=== PATIENT | female | born 1975 | race Caucasian/White ===

== ENCOUNTER 2021-11-04 15:27 | Emergency (ER) | payer BC, SELFPAY ==
[2021-11-04 15:43] VITALS: BP 130/83; PULSE 84; RESP 18; TEMP 36.4; O2SAT 99
--- NOTE | 2021-11-04 15:43 | ED.EAR ---
HPI - Ear Problem General Chief complaint: Ear Stated complaint: lt ear pain Time Seen by Provider: 11/04/21 15:43 Source: patient Mode of arrival: ambulatory Limitations: no limitations History of Present Illness HPI Narrative: 46-year-old female presents with complaint of left ear pain for approximately 1 week. Today noticed left earlobe is swollen, red and tender. Also noticed decreased hearing from left ear. Afebrile. All systems reviewed and negative except as noted above. Related Data Allergies Allergy/AdvReac Type Severity Reaction Status Date / Time No Known Allergies Allergy Verified 11/04/21 15:51 Review of Systems Review of Systems: CONSTITUTIONAL: Denies fever, chills, or sweats. EYES: Denies visual changes, redness, or discharge. ENT: Denies rhinorrhea, congestion, sore throat. Reports left ear pain. CARDIOVASCULAR: Denies chest pain, palpitations, or edema. RESPIRATORY: Denies cough or dyspnea. GASTROINTESTINAL: Denies abdominal pain, nausea, vomiting, or diarrhea. GENITOURINARY: Denies dysuria or hematuria. SKIN: Denies rash or itching. MUSCULOSKELETAL: Denies back pain, joint pain, or myalgia. NEUROLOGIC: Denies headache, numbness, or weakness. PSYCHIATRIC: Denies anxiety or depression. All other systems reviewed are negative, except as documented in HPI. PMFSH Comments At time of signature, agree with nursing past medical, surgical, social and family history. There is no relevant family history pertinent to the presenting complaint. Exam Narrative: GENERAL: This is a well-nourished, well-developed patient, in no apparent distress. HEAD: normocephalic, atraumatic. EYES: PERRL. Sclera clear/white. Vision is grossly intact. EARS: TMs normal without perforation. Swelling erythema and white drainage to left ear canal. Erythema, swelling and tenderness to entire left earlobe. NOSE: External nose normal NECK: Neck supple, non-tender without lymphadenopathy, masses or thyromegaly. CARDIOVASCULAR: Regular rate and rhythm without murmurs, gallops, or rubs. RESPIRATORY: Clear to auscultation. Breath sounds equal bilaterally. No wheezes, rales, or rhonchi. SKIN: warm, Dry, intact with no suspicious lesions or rash, good texture and turgor. NEURO: awake, alert, and oriented to person, place and time. There were no obvious focal neurologic abnormalities. EXTREMITIES: Normal range of motion to all extremities. Course Course Level of Care: Express Care Visit Vital Signs Vital signs: Vital Signs Temperature 36.4 C L 11/04/21 15:43 Pulse Rate 84 11/04/21 15:43 Respiratory Rate 18 11/04/21 15:43 Blood Pressure 130/83 11/04/21 15:43 Pulse Oximetry 99 11/04/21 15:43 Temperature 36.4 C L 11/04/21 15:43 Pulse Rate 84 11/04/21 15:43 Respiratory Rate 18 11/04/21 15:43 Blood Pressure 130/83 11/04/21 15:43 Pulse Oximetry 99 11/04/21 15:43 Reviewed Medical Decision Making MDM Narrative Medical decision making narrative: Patient is aware of diagnosis, understands and agrees to treatment plan. Anticipatory guidance given. Patient agrees to follow-up as directed and is aware of reasons to seek care at the emergency department. Portions of this record may have been created with voice recognition software Vital Signs Vital Signs: Vital Signs Temperature 36.4 C L 11/04/21 15:43 Pulse Rate 84 11/04/21 15:43 Respiratory Rate 18 11/04/21 15:43 Blood Pressure 130/83 11/04/21 15:43 Pulse Oximetry 99 11/04/21 15:43 Temperature 36.4 C L 11/04/21 15:43 Pulse Rate 84 11/04/21 15:43 Respiratory Rate 18 11/04/21 15:43 Blood Pressure 130/83 11/04/21 15:43 Pulse Oximetry 99 11/04/21 15:43 Discharge Plan Discharge Clinical Impression: Cellulitis of left external ear, Acute left otitis media Patient Disposition: Home, Self-Care Condition: Stable Instructions: Antibiotic Form, Swimmer's Ear (ED) Additional Instructions: Use antibiotics
== END 2021-11-04 16:00 | disposition home or self-care (01) ==
PROVIDERS: Emergency Provider Nurse Practitioner Family
DX: H60.12 Cellulitis of left external ear (principal); H66.92 Otitis media, unspecified, left ear
CPT/HCPCS: 99203; G0463

== ENCOUNTER 2022-07-25 11:42 | Outpatient (CLI) | payer BC, SELFPAY ==
--- NOTE | ~2022-07-25 | MMUS_ITS ---
EXAMINATION: MM diagnostic wandy BI w adeline, US breast RT complete HISTORY: Right breast pain TECHNIQUE: Additional 3-D tomosynthesis images of the breasts were performed and synthetic 2-D images were generated. CAD analysis was submitted and interpreted. High resolution complete right breast ul trasound was performed. COMPARISON: Comparison to multiple prior studies sequentially, with oldest reviewed study dated 11/2018. BREAST PARENCHYMAL COMPOSITION: Breast composed of scattered areas of fibroglandular density FINDINGS: MAMMOGRAPHIC FINDINGS: There are no suspicious masses, calcifications or architectural distortion in either breast to sugges t malignancy. ULTRASOUND: Complete US of all 4 quadrants of the right breast and retroareolar region was reviewed. Normal heter ogeneous echotexture without focal solid or cystic mass. IMPRESSION: 1. No evidence for malignancy in either breast. 2. Routine yearly screening mammogram and regular clinical breast examination are recommended. BI-RADS CATEGORY 1 - NEGATIVE Reviewed, dictated and finalized at location A. [employer] ASSURANCE/R[employer]D LAB TECHNICIAN IMPRESSION: 1. No evidence for malignancy in either breast. 2. Routine yearly screening mammogram and regular clinical breast examination a re recommended. BI-RADS CATEGORY 1 - NEGATIVE
== END 2022-07-25 11:43 | disposition home or self-care (01) ==
PROVIDERS: Visit Provider Hospitalist
DX: N64.4 Mastodynia (principal)
CPT/HCPCS: 76641; 77062; 77066; G0279

== ENCOUNTER 2023-09-07 15:27 | Emergency (ER) | payer BC, SELFPAY ==
[2023-09-07 15:39] VITALS: BP 136/77; PULSE 95; RESP 18; TEMP 37; O2SAT 100
--- NOTE | 2023-09-07 15:54 | ED.FEMALEGU ---
HPI - Female Genitourinary General Chief complaint: Urogenital-Female Stated complaint: UTI Symptoms Time Seen by Provider: 09/07/23 16:05 Source: patient and RN notes reviewed Mode of arrival: ambulatory Limitations: no limitations History of Present Illness HPI Narrative: 48-year-old female presents with concern with low back pain. She reports she ?threw out my back? last week and she has been seeing a chiropractor. She reports minimal improvement with the chiropractor. She reports pain is worse with bending, twisting, sitting, standing. She reports this week she has had some increased urine frequency. She denies dysuria, abdominal pain, nausea, vomiting, fever, chills, body aches, sweats. She denies weakness in any extremity. She denies loss of bowel or bladder function, perianal anesthesia. She reports she has been having typical vaginal discharge MD elicited complaint: UTI Related Data Allergies Allergy/AdvReac Type Severity Reaction Status Date / Time No Known Allergies Allergy Verified 09/07/23 15:43 Review of Systems Review of Systems: CONSTITUTIONAL: Denies malaise, chills, sweats, or fever. CARDIOVASCULAR: Denies chest pain, palpitations, or edema. RESPIRATORY: Denies cough or dyspnea. GASTROINTESTINAL: Denies abdominal pain, nausea, vomiting, diarrhea GENITOURINARY: Denies dysuria, urgency, suprapubic pressure. Denies flank pain or hematuria. Reports urine frequency SKIN: Denies rash or itching. MUSCULOSKELETAL: Reports left low back pain. Denies myalgia. All systems reviewed & are unremarkable except as noted in HPI and below PMFSH Comments At time of signature, agree with nursing past medical, surgical, social and family history. There is no relevant family history pertinent to the presenting complaint Exam Narrative: GENERAL: Well-appearing, well-nourished, and in no acute distress. HEAD: Normocephalic, atraumatic. EYES: PERRLA and EOMI. NECK: Supple. No lymphadenopathy. CHEST: Clear to auscultation. No respiratory distress. HEART: Regular rate and rhythm. Distal pulses palpable and equal, cap refill <3 seconds ABDOMEN: Soft, nontender, nondistended, normal active bowel sounds, no palpable or pulsatile masses. No CVA tenderness MUSCULOSKELETAL: Normal range of motion and strength in all extremities; 5/5 strength with hip flexion and extension, dorsiflexion and extension, knee flexion and extension, plantar flexion and extension. Normal sensation in dermatomal distributions with sensitivity to light touch and pain. No midline back tenderness to palpation. No paraspinal tenderness. Transfers from lying to sitting to standing. SKIN: Warm, dry, no rash. No ecchymosis, erythema, open wounds to back. NEURO: No focal deficits. Alert and oriented x3. Reflexes intact. Normal gait. PSYCH: Normal mood and affect Course Course Emergency Course: Patient is aware of diagnosis, understands and agrees to treatment plan. Anticipatory guidance given. Patient agrees to follow-up as directed and is aware of reasons to seek care at the emergency department. Portions of this record may have been created with voice recognition software Level of Care: Express Care Visit Vital Signs Vital signs: Vital Signs Temperature 98.6 F 09/07/23 15:39 Pulse Rate 95 09/07/23 15:39 Respiratory Rate 18 09/07/23 15:39 Blood Pressure 136/77 09/07/23 15:39 Pulse Oximetry 100 09/07/23 15:39 Oxygen Delivery Room Air 09/07/23 15:39 Temperature 98.6 F 09/07/23 15:39 Pulse Rate 95 09/07/23 15:39 Respiratory Rate 18 09/07/23 15:39 Blood Pressure 136/77 09/07/23 15:39 Pulse Oximetry 100 09/07/23 15:39 Oxygen Delivery Room Air 09/07/23 15:39 Reviewed. MDM - Female Genitourinary MDM Narrative Medical decision making narrative: Exam findings and UA show no acute concerns or changes; patient is non-toxic appearing and is in no distress. Patient is appropriate for outpatient treat
== END 2023-09-07 16:17 | disposition home or self-care (01) ==
PROVIDERS: Emergency Provider Nurse Practitioner; PCP Hospitalist
DX: M54.50 Low back pain, unspecified (principal)
CPT/HCPCS: 81003; 99213; G0463

== ENCOUNTER 2025-03-04 15:31 | Emergency (ER) | payer BC, SELFPAY ==
--- NOTE | 2025-03-04 15:36 | ED.GENADULT ---
HPI - General Adult General Chief complaint: Urogenital-Female Stated complaint: possible bladder infection Source: patient Mode of arrival: ambulatory Limitations: no limitations History of Present Illness HPI narrative: Pt is a 49-year-old female presenting with complaint of urinary symptoms. Symptoms reported include suprapubic pressure, urinary frequency, hematuria. Symptoms were noted this morning. Treatment initiated prior to arrival include is Tylenol. No concern for STI or . no Additional complaints. Related Data Allergies Allergy/AdvReac Type Severity Reaction Status Date / Time No Known Allergies Allergy Verified 03/04/25 15:32 Review of Systems Review of Systems: CONSTITUTIONAL: Denies body aches, fever, chills, or sweats. EYES: Denies visual changes, redness, or discharge. ENT: Denies rhinorrhea, congestion, sore throat, or otalgia. CARDIOVASCULAR: Denies chest pain, palpitations, or edema. RESPIRATORY: Denies cough or dyspnea. GASTROINTESTINAL: Denies abdominal pain, nausea, vomiting, or diarrhea. GENITOURINARY: reports suprapubic pressure, frequency, hematuria,denies dysuria SKIN: Denies rash, itching, or wounds. MUSCULOSKELETAL: Denies back pain, joint pain, or myalgia. NEUROLOGIC: Denies headache, numbness, tingling, or weakness. PSYCH: Denies depression or anxiety. All systems reviewed & are unremarkable except as noted in HPI and below ( HPI) Exam Narrative: GENERAL: Well-appearing, well-nourished, and in no acute distress. HEAD: Normocephalic, atraumatic. EYES: EOMI. No redness or drainage. Conjunctivae normal. NECK: Normal AROM. Supple. CHEST: No respiratory distress. HEART: Regular rate ABDOMEN: Soft, nontender, nondistended, normal active bowel sounds. no CVAT MUSCULOSKELETAL: No bony tenderness. EXTREMITIES: Normal range of motion. No edema. SKIN: Warm, dry, no rash. Capillary refill normal. Normal skin turgor. NEURO: No focal deficits. Alert and oriented x3. Gait steady. PSYCH: Normal affect. No signs of depression or anxiety. Course Course Level of Care: Express Care Visit Vital Signs Vital signs: Vital Signs Temperature 97.8 F 03/04/25 15:39 Pulse Rate 76 03/04/25 15:39 Respiratory Rate 18 03/04/25 15:39 Blood Pressure 136/85 03/04/25 15:39 Pulse Oximetry 99 03/04/25 15:39 Oxygen Delivery Room Air 03/04/25 15:39 Temperature 97.8 F 03/04/25 15:39 Pulse Rate 76 03/04/25 15:39 Respiratory Rate 18 03/04/25 15:39 Blood Pressure 136/85 03/04/25 15:39 Pulse Oximetry 99 03/04/25 15:39 Oxygen Delivery Room Air 03/04/25 15:39 Medical Decision Making Vital Signs Vital Signs: Vital Signs Temperature 97.8 F 03/04/25 15:39 Pulse Rate 76 03/04/25 15:39 Respiratory Rate 18 03/04/25 15:39 Blood Pressure 136/85 03/04/25 15:39 Pulse Oximetry 99 03/04/25 15:39 Oxygen Delivery Room Air 03/04/25 15:39 Temperature 97.8 F 03/04/25 15:39 Pulse Rate 76 03/04/25 15:39 Respiratory Rate 18 03/04/25 15:39 Blood Pressure 136/85 03/04/25 15:39 Pulse Oximetry 99 03/04/25 15:39 Oxygen Delivery Room Air 03/04/25 15:39 Lab Data Lab results reviewed: Yes I reviewed the patient's lab results. Labs: Lab Results 03/04/25 Range/Units 15:44 POC Urine Color Yellow POC Urine Clarity Clear POC Urine pH 6.5 POC Ur Specif Mccool 1.015 POC Urine Protein Negative (Negative) POC Ur Glucose (UA) Negative (Negative) POC Urine Ketones Negative (Negative) POC Urine Blood Trace (Negative) POC Urine Nitrite Negative (Negative) POC Urine Bilirubin Negative (Negative) POC Urine Urobilinogen 0.2 POC U Leukocyte Esteras Trace (Negative) Discharge Plan Discharge Clinical Impression: Dysuria Patient Disposition: Home Condition: Stable Instructions: Antibiotic Form Additional Instructions: Go straight to ER should your symptoms become worse or should any new symptoms develop Patient Language: [place] Prescriptions: New nitrofurantoin monohyd/m-cryst [Macrobid] 100 mg capsule 100 mg PO Q12H 5 Days Qty: 10 0RF Rx Instructions: must administer with a meal/food Follow-up/Referrals: Naif,Benita Mccain MD [Primary Care Provider, Unknown] - 03/05/25 Time of Disposition: 15:46
[2025-03-04 15:39] VITALS: BP 136/85; PULSE 76; RESP 18; TEMP 36.6; O2SAT 99
[2025-03-04 15:47] LABS: EDUAAPPEAR Clear; EDUABILI Negative (Negative); EDUABLOOD Trace (Negative); EDUACOLOR1 Yellow; EDUAGLUCOSE Negative (Negative); EDUAKETONE Negative (Negative); EDUALEUKO Trace (Negative); EDUANITRATE Negative (Negative); EDUAPH 6.5; EDUAPROTEIN Negative (Negative); EDUASPGRAVITY 1.015; EDUAUROBILI 0.2
--- OUTSIDE RECORDS SUMMARY | 2025-03-04 15:51 | XMS_ITS | Encounter Summary ---
Author Organization [facility] Address [address] [place] [id number] Care Team Providers Care Hospice Case Manager Name Role Phone Aggie Stinson DIRECTOR CORRECTIONAL AGENCY Primary Care Provider [phone] Encounter Details Date Type Department Care Team (Latest Contact Info) Description 04/30/2018 Abstract [facility] Sy Rivera MD Social History Tobacco Use Types Packs/Day Years Used Date Smoking Tobacco: Never Assessed AUDIT-C Answer Date Recorded Frequency of Alcohol Consumption 2-4 times a sun05/02/2018 Average Number of Drinks 1 or 2 018 Frequency of Binge Drinking Not on file 01/2018 Comments Unknown Sex and Gender Information Value Date Recorded Sex Assigned at Not on file Legal Sex Female 7:42 PM CDT Gender Identity Not on file Sexual Orientation Not on file documented as of this encounter Functional Status documented as of this encounter Plan of Treatment Not on file documented as of this encounter Visit Diagnoses Not on filedocumented in this encounter Care Teams Hospice Case Manager Relationship Specialty Start Date End Date Aggie Stinson NP [address] [place] [address] PCP - General NURSE PRACTITIONER 04/25/18 04/16/24 documented as of this encounter
--- OUTSIDE RECORDS SUMMARY | 2025-03-04 15:51 | XMS_ITS | Clinical Summary ---
Author Organization [facility] Address [address] [place] [id number] Care Team Providers Care Director Acute Name Role Phone Unavailable Primary Care Provider Unavailabl e Allergies No known active allergies Medications esomeprazole 20 MG capsule Take 20 mg by mouth daily. Active multivitamin tablet Take 1 tablet by mouth daily. Active Active Problems Problem Noted Date Diagnosed Date Heartburn 06/14/2015 GERD (gastroesophageal reflux disease) 4 Immunizations Immunization Administration Dates Next Due Tdap (Adacel) 06/25/2019(Deferred: Patient/fam barbara declined) Tdap (Generic) 03/11/2016 Family History Medical History Relation Comments Brain cancer Father Cancer Father Diabetes Maternal Grandmother Diabetes Mother Relation Status Comments Father Maternal Grandmother Mother Alive Social History Tobacco Use Types Packs/Day Years Used Date Smoking Tobacco: Never Smokeless Tobacco: Never Alcohol Use Standard Drinks/Week Comments Yes 1.7 (1 standard drink = 0.6 oz p ure alcohol) Once per week AUDIT-C Answer Date Recorded Frequency of Alcohol Consumption 2-4 times a sun05/02/2018 Average Number of Drinks 1 or 2 018 Frequency of Binge Drinking Not on file 01/2018 Comments No Sex and Gender Information Value Date Recorded Sex Assigned at Not on file Legal Sex Female 7:42 PM CDT Gender Identity Not on file Sexual Orientation Not on file 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 Not on file Not on file Not on file Last Filed Vital Signs Vital Sign Reading Time Taken Comments Blood Pressure 122/82 12/23/2019 1:33 PM CDT Pulse 87 12/23/2019 1:33 PM CDT Temperature 36.7 C (98.1 F) 12/23/2019 1:33 PM CDT Respiratory Rate 20 12/23/2019 1:33 PM CDT Oxygen Saturation 99% 12/23/2019 1:33 PM CDT Inhaled Oxygen Concentration - - Weight 81.6 kg (180 lb) 12/23/2019 1:33 PM CDT Height 162.6 cm (5' 4) 12/23/2019 1:33 PM CDT Body Mass Index 30.9 12/23/2019 1:33 PM CDT Plan of Treatment Health Maintenance Due Date Last Done Comments Cervical Cancer Screening Pa p Smear (Age 30 to 64) Every 3 Years 1976 Colorectal Cancer Screening Colonoscopy (10 Years) 1976 Annual Physical 1979 Hepatitis C 1994 Hepatitis B Vaccines (1 of 3 - 19+ 3-dose series) 1995 Cervical Cancer Screening Pa p with HPV Testing (Age 30 to 64) Every 5 Years 2006 [facility]ical Cancer Screening [facility] HPV 2006 Mammogram Screening 2016 COVID-19 Vaccine (3 - 2024-2 6 season) 2025 10/24/2020, 10/10/2020 DTaP, Tdap and Td Vaccines ( 3 - Td or Tdap) 06/25/2029 06/25/2019, 03/11/2016 Meningococcal B Vaccine Aged Out No l onger eligible based on patient's age to complete this topic Meningococcal Vaccine Aged Out No jair rodríguez eligible based on patient's age to complete this topic Pneumococcal Vaccine: Pediatrics (0 to 5 Years) and At-Risk Patients (6 to 49 Years) Aged Out No longer eligible b ased on patient's age to complete this topic RSV Immunizations Under 20 Months Aged Out No longer eligible b ased on patient's age to complete this topic Insurance [employer]
--- OUTSIDE RECORDS SUMMARY | 2025-03-04 15:51 | XMS_ITS | Clinical Summary ---
Author Organization [facility] at the Medical Office Building Address [address] [place] [address] Care Team Providers Care Assembler Knife Name Role Phone Benita Disla MD Primary Care Pro vider Allergies No known active allergies Medications multivitamin tablet Take 1 tablet by mouth daily Active esomeprazole DR (NexIUM) 20 mg capsule Take 1 capsule (20 mg total) by mouth daily Active predniSONE (DELTASONE) 20 mg tablet Take 2 tablets (40 mg) by mouth daily 09/07/2023 Active cyclobenzaprine (FLEXERIL) 10 mg tablet Take 1 tablet (10 mg total) by mouth 3 (three) times a day as needed 09/07/2023 Active meloxicam (MOBIC) 15 mg tabletIndicatio ns:Acute left-sided low back pain without sciatica Take 1 tablet (15 mg total) by mouth daily for 15 days 15 tablet 09/17/2023 Active Active Problems Problem Noted Date Diagnosed Date Pre-diabetes 04/15/2024 Assessment & Plan (04/15/2024 9:40 AM CDT): Lab Results Component Value Date HGBA1C 6.0 (H) 11/09/2020 Due for recheck, orders placed to check before next appt Acute left-sided low back pain without sciatica 09/17/2023 Assessment & Plan (09/17/2023 1:02 PM CDT): Acute Ordered x-rays of lumbar spine Started on meloxicam 10 mg daily Advised not to take Advil, Motrin, ibuprofen, Aleve, naproxen, or aspirin while taking meloxicam Informed can also use lidocaine patches Instructed if she changes her mind and would like physical therapy, to notify office If symptoms do not resolve with treatment, recommended follow-up with PCP Instructed to go to ER if loss of bowel or bladder control, saddle anesthesia, back pain worsens, develops pain in legs, or numbness or tingling in legs Encounter for physical examination related to em ployment 12/12/2022 Assessment & Plan (12/12/2022 8:28 AM CDT): No abnormal findings on PE to preclude employment. Tdap up-to-date. No MMR records available for review. Paperwork completed. Well woman exam with routine gynecological exam 11/09/2020 Assessment & Plan (11/09/2020 4:42 PM CDT): Never smoker PAP: today Mammo due in January Sexual transmitted infection testing: declines BP within normal limits Body mass index is 32.1 kg/m . Discussed diet and exercise Discussed skin cancer prevention and screening Check labs Vaccinations UTD Class 1 obesity due to exces s calories without serious comorbidity with body mass index (BMI) of 31.0 to 31.9 in adult 01/21/2020 Assessment & Plan (09/17/2023 1:03 PM CDT): Chronic, improved Encouraged to: Make healthy food choices, limiting intake of concentrated sweets, cholesterol, and saturated fat Monitor daily caloric intake and portion sizes Exercise most days of the week when able for a goal of at least 150 minutes of exercise per week Assessment & Plan (01/21/2020 10:45 AM CDT): BMI Follow-up includes: exercise counseling. GERD (gastroesophageal reflux disease) 4 Assessment & Plan (01/21/2020 10:39 AM CDT): Stable on omeprazole Immunizations Immunization Administration Dates Next Due Influenza, Unspecified 04/15/2024(Deferr ed: Patient Refused),07/06/2022(Deferred: Patient Refused),03/25/2022(Deferred: Patient Refused) Pfizer SARS-CoV-2 Monovalent Vaccination (12+ Yrs) PURPLE 10/24/2020,10/10/2020 Tdap 06/25/2019,03/11/2016 Surgical History Surgery Date Site/Laterality Comments KNEE SURGERY Medical History Medical History Date Comments GERD (gastroesophageal reflux disease) Family History Medical History Relation Name Comments Brain cancer Father Diabetes Mother Relation Name Status Comments Brother Alive Father Mother Alive Sister Alive Social History Tobacco Use Types Packs/Day Years Used Date Smoking Tobacco: Never Smokeless Tobacco: Never Alcohol Use Standard Drinks/Week Comments Not Currently 0 (1 standard drink = 0.6 oz pur e alcohol) PHQ-2 Answer Date Recorded PHQ-2 Total Score (If total score is 3 or more points, staff should administer the PHQ-9) 0 09/17/2023 Personal Safety Answer Date Recorded Getting School Help Needed Not on file 06/20 Comments No Sex and Gender Information Value Date Recorded Sex Assigned at Not on file 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 Gender Identity Not on file Sexual Orientation Not on file Obstetrics History Para Term AB IAB SAB Ectopic Multiple Livin g Live Births 2 2 2 Date Outcome GA Total Labor Labor/2nd/3rd Weight Sex Type Anes PTL Sanjuana A1 A5 Name Clin Term Term Last Filed Vital Signs Vital Sign Reading Time Taken Comments Blood Pressure 124/76 04/15/2024 8:45 AM CDT Pulse 81 04/15/2024 8:45 AM CDT Temperature 36.7 C (98 F) 04/15/2024 8:45 AM CDT Respiratory Rate 18 04/15/2024 8:45 AM CDT Oxygen Saturation 99% 04/15/2024 8:45 AM CDT Inhaled Oxygen Concentration - - Weight 81.8 kg (180 lb 6.4 oz) 04/15/2024 8:45 A M CDT Height 162.6 cm (5' 4) 04/15/2024 8:45 AM CDT Body Mass Index 30.97 04/15/2024 8:45 AM CDT Plan of Treatment Health Maintenance Due Date Last Done Comments Colon Cancer Screening-Colonoscopy 1975 Hepatitis C Screening 1975 Hepatitis B Screening 1994 Regular Well Visit/Exam 18-64 11/09/2021 11/09/2020 Breast Cancer Screening-Mammogram 04/09/2022 04/09/2021, 12/31/2019, 07/31/2018, Additional history exists Covid-19 Vaccine ( season) 2024 07/05/2021, 10/24/2020, 10/10/2020 Depression Screening 09/16/2024 09/17/2023, 01/21/2020, 01/21/2020 Influenza Vaccine (#1) 2025 Cervical Cancer Screening 11/09/2025 11/09/2020 DTaP/Tdap/Td Vaccine (3 - Td or Tdap) 06/25/2029 06/25/2019, 03/11/2016 Pneumococcal vaccine <65 Aged Out No longer eligible based on patient's age to complete this topic Procedures Procedure Name Priority Date/Time Associated Diagnosis Comments SCREENING MAMMOGRAM BILATERAL W DAV Schedule Routine, Read Routine (OP Routine) 04/09/2021 10:16 AM CDT Encounter for screening mammogram for malignant neoplasm of breast THINPREP PAP WITH HPV Routine 11/09/2020 12:01 AM CDT from Last 3 Months or Most Recently Relevant to Health Maintenance Results * Screening Mammogram Bilateral W Dav (04/09/2021 10:16 AM CDT) Anatomical Region Laterality Modality Breast Bilateral Mammography Impressions 04/11/2021 8:53 AM CDT BI-RADS ATLAS category (overall): 1 Negative There is no mammographic evidence of malignancy. A 1 year screening mammogram is recommended. The patient has been or will be contacted. We recommend annual screening mammography for women at average risk of breast cancer beginning at age 40, based on guidelines of the [employer] (ACR Practice Parameter for the Performance of Screening and Diagnostic Mammography) and [place] [employer]. For women with and elevated risk of breast cancer, please refer to the ACR Practice Parameter for specific screening recommendations. The patient will be entered into a reminder system with a target due date of 1 year for her next screening exam. Narrative 04/11/2021 8:53 AM CDT Screening Mammogram Bilateral W Dav: 04/09/21 The study was acquired using full field digital technology and interpreted from soft copy. 2D digital mammographic views, as well as 3D digital tomosynthesis were performed in the CC and MLO projections. CLINICAL: Encounter for screening mammogram for malignant neoplasm of breast No relevant medical history has been documented for this patient. No known family history of breast cancer. COMPARISONS: 12/31/2019 Screening Mammogram Bilateral W Dav 07/31/2018 Screening Mammogram Bilateral W Dav BREAST TISSUE: The breasts have scattered areas of fibroglandular density. FINDINGS: No suspicious masses, suspicious calcifications, or other suspicious findings are seen within either breast. There has been no suspicious change. Procedure Note Deepak Mitchell MD - 04/11/2021 Screening Mammogram Bilateral W Dav: 04/09/21 The study was acquired using full field digital technology and interpretedfrom soft copy. 2D digital mammographic views, as well as 3D digitaltomosynthesis were performed in the CC and MLO projections. CLINICAL: Encounter for screening mammogram for malignant neoplasm ofbreast No relevant medical history has been documented for this patient.No known family history of breast cancer. COMPARISONS: 12/31/2019 Screening Mammogram Bilateral W Dav 07/31/2018 Screening Mammogram Bilateral W Dav BREAST TISSUE: The breasts have scattered areas of fibroglandular density. FINDINGS: No suspicious masses, suspicious calcifications, or othersuspicious findings are seen within either breast. There has been nosuspicious change. IMPRESSION: BI-RADS ATLAS category (overall): 1 Negative There is no mammographic evidence of malignancy. A 1 year screeningmammogram is recommended. The patient has been or will be contacted. We recommend annual screening mammography for women at average risk ofbreast cancer beginning at age 40, based on guidelines of the [employer] (ACR Practice Parameter for the Performance ofScreening and Diagnostic Mammography) and [place] [employer]. For women with and elevated risk ofbreast cancer, please refer to the ACR Practice Parameter for specificscreening recommendations. The patient will be entered into a reminder system with a target due dateof 1 year for her next screening exam. us Benita Disla MD IMG MAMMO PROCEDU RES Final Result * (ABNORMAL) ThinPrep Pap with HPV (11/09/2020 12:01 AM CDT) Pap test 11/09/2020 12:0 1 AM CDT 11/12/2020 10:38 AM CDT Narrative 11/18/2020 3:18 PM CDT [facility] Department of Pathology [address] [place], [place] [id number] Final Report with Addendum Patient Name: MAE JOEL Address: [address] [place] [address] Gender: F : 1975 (Age: 45) Service: Laboratory Location: Lab Hospital #: [id number] Patient Type: Ref Lab Taken: 11/09/2020 Received: 11/12/2020 Accessioned:: 11/15/2020 Reported: 11/18/2020 Physician(s): Benita Disla M.D. [facility] Diagnosis: Source of Specimen: Screening ThinPrep Imaged Pap w/Reflex HPV Specimen Adequacy: - Satisfactory for evaluation; endocervical/transformation zone component present General Category: - Epithelial cell abnormality Interpretation/Results: - Atypical squamous cells of undetermined significance MELISSA Valdes(ASCP) Sarah Marques M.D. Report Electronically Reviewed and Signed Out By Sarah Marques M.D. 11/18/2020 15:18:44 Addenda: HPV Test Interpretation NEGATIVE for types 16, 18, 31, 33, 35, 39, 45, 51, 52, 56, 58, 59, 66 and 68. Test performed utilizing Gen-Probe Aptima assay. MELISSA Valdes(ASCP) Report Electronically Reviewed and Signed Out By KARTIK ValdesASCP) 11/15/2020 17:27:40 Specimen(s) Received: A: Screening ThinPrep Imaged Pap w/Reflex HPV Clinical History: Last Menstrual Period: 11/09/2020 Menstrual History: Previous Negative Pap Regular Cycles The Pap test is a screening test used to aid in the detection of cervical cancer and its precursors. It should not be the sole means by which malignant and premalignant lesions are diagnosed. Both false negative and false positive results may occur. It also has poor sensitivity for the detection of endometrial lesions and should not be used to evaluate suspected endometrial abnormalities. For these reasons it is most important to obtain Pap tests at regular intervals. The performance characteristics of some immunohistochemical stains, fluorescence in-situ hybridization tests and immunophenotyping by flow cytometry cited in this report (if any) were determined by the Surgical Pathology Department at as part of an ongoing quality rep program and in compliance with federally mandated regulations drawn from the Clinical Laboratory Improvement Act of 1988 (CLIA '88). Some of these tests rely on the use of analyte specific reagents and are subject to specific labeling requirements by the US Food and Drug Administration. Such diagnostic tests may only be performed in a facility that is certified by the Department of Health and Human Services as a high complexity laboratory under CLIA '88. The FDA has determined that such clearance or approval is not necessary. This test is used for clinical purposes. It should not be regarded as investigational or for research. Nevertheless, federal rules concerning the medical use of analyte specific reagents require that the following disclaimer be attached to the report: This test was developed and its performance characteristics determined by the Surgical Pathology Department [facility]. It has not been cleared or approved by the U. S. Food and Drug Administration. Benita Disla MD LAB CYTOLOGY RANI DAIGLE Final Result from Last 3 Months or Most Recently Relevant to Health Maintenance Insurance [employer] [facility] Care Teams Assembler Knife Relationship Specialty Start Date End Date Benita Disla MD PCP - General Family Medicine 01/21/20
--- OUTSIDE RECORDS SUMMARY | 2025-03-04 15:51 | XMS_ITS | Encounter Summary ---
Author Organization [facility] Address [address] [place] [address] Care Team Providers Care Polisher Implant Name Role Phone Aggie Stinson HUMAN RESOURCES RECRUITER Primary Care Provider [phone] Encounter Details Date Type Department Care Team (Late st Contact Info) Description 11/30/2018 Abstract [facility] CONVERSION [address] [place] [address] , Generic Conversion, Social History Tobacco Use Types Packs/Day Years [...] file Not on file Not on file documented as of this encounter Plan of Treatment Not on file documented as of this encounter Visit Diagnoses Not on filedocumented in this encounter Care Teams Polisher Implant Relationship Specialty Start Date End Date Aggie Stinson, HUMAN RESOURCES RECRUITER [address] [place] [address] PCP - General NURSE PRACTITIONER 04/25/18 04/16/24 documented as of this encounter
== END 2025-03-04 15:55 | disposition home or self-care (01) ==
PROVIDERS: Emergency Provider Registered Nurse; PCP Hospitalist
DX: R30.0 Dysuria (principal)
CPT/HCPCS: 81003; 87086; 99213; G0463